=== PATIENT | male | born 1975 | race Caucasian/White ===

== ENCOUNTER → 2024-01-07 | Day surgery (SDC) | payer OTHER ==
[2024-01-03 13:07] LABS: BASOPHILS # (AUTO) 0.1 (0.0-0.1); BASOPHILS % 0.8 % (0.0-1.0); EOSINOPHILS # (AUTO) 0.1 (0.0-0.4); EOSINOPHILS % 1.9 % (0.0-6.0); HEMOGLOBIN 15.5 g/dL (14.0-18.0); LYMPHOCYTES # (AUTO) 1.4 (1.0-3.2); LYMPHOCYTES % 22.7 % (18.0-39.1); MEAN CORPUSCULAR HEMOGLOBIN 32.1 pg (28-32); MEAN CORPUSCULAR VOLUME 97.3 fL (81-99); MONOCYTES # (AUTO) 0.8 (0.2-0.8); MONOCYTES % 12.3 % (4.4-11.3); NEUTROPHILS # (AUTO) 3.9 (2.1-6.9); NEUTROPHILS % 62.1 % (38.7-80.0); PLATELET COUNT 303 x10e3/uL (140-360); RED BLOOD COUNT 4.83 x10e6/uL (4.3-5.7); RED CELL DISTRIBUTION WIDTH 12.3 % (11.7-14.4); WHITE BLOOD COUNT 6.33 x10e3/uL (4.8-10.8)
[~2024-01-07] MED LIST: ACETAMINOPHEN 1000 MG/100 ML IV ONE; BUPROPION HCL100 MG PO; DEXAMETHASONE SOD PHOS 10 MG/1 ML VIAL ONE; DEXAMETHASONE SOD PHOS INJ 4 MG/ML SDV ONE; FENTANYL CITRATE/PF 100MCG/2 ML INJ ONE; IRBESARTAN150 MG PO; LIDOCAINE HCL 2% LOCAL INJ 5 ML SDV VIAL INJ ONE; MIDAZOLAM HCL 2 MG/2 ML VIAL ONE; ONDANSETRON HCL INJ 2MG/ML 2ML 2 MG/ML VIAL ONE; PROPOFOL IV EMULSION 10 MG/ML 20 ML VIAL ONE; ROPIVACAINE 0.5% 5 MG/ML 30 ML SDV ONE; ROSUVASTATIN CAL5 MG; SEVOFLURANE INHAL SOLN 250 ML PEN BTL ONE; VRAYLAR3 MG
[2024-01-07] MEDS: CEFAZOLIN SODIUM 2 GM ONE (08:25)
[2024-01-07] MEDS: LACTATED RINGER'S 1,000 ML ONE (08:25)
[2024-01-07 12:20] VITALS: BP 138/78; PULSE 77; RESP 17; O2SAT 97
== END | disposition home or self-care (01) ==
LOC: OR 07:55
PROVIDERS: ATTEND Orthopaedic Surgery
DX: M75.122 Complete rotator cuff tear or rupture of left shoulder, not specified as traumatic (principal); M75.42 Impingement syndrome of left shoulder; M75.52 Bursitis of left shoulder; M75.02 Adhesive capsulitis of left shoulder; I10 Essential (primary) hypertension; E78.5 Hyperlipidemia, unspecified; F31.9 Bipolar disorder, unspecified; Z01.810 Encounter for preprocedural cardiovascular examination; Z01.812 Encounter for preprocedural laboratory examination; Z79.899 Other long term (current) drug therapy
CPT/HCPCS: 29826; 29827; 36415; 85025; 93005; C1713; J0131; J1100 ×2; J2001; J2250; J2405; J2704; J2795; J3010; J7121